=== PATIENT | male | born 1985 | race African-American/Black ===

== ENCOUNTER 2021-06-09 17:24 | Emergency (ER) | payer OTHER ==
[~2021-06-09] VITALS: Ht 180.3 cm; Wt 90.7 kg
[2021-06-09 18:01] VITALS: BP 133/78
== END 2021-06-09 18:02 | disposition home or self-care (01) ==
LOC: M.ERS 17:24 → EDBD 17:24 → M.ERS 18:02
DX: N48.89 Other specified disorders of penis (principal)